=== PATIENT | female | born 1995 | race Two or more races ===

== ENCOUNTER 2016-10-27 01:34 | Emergency (ER) | payer MEDICAID ==
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
--- NOTE | 2016-10-27 13:50 | Diagnostic Imaging Report ---
CT scan of the brain without contrast History: Headache Total DLP equals 523 CTDI equals 31.7 Axial sections were obtained from the base of the skull to the vertex. There is a normal ventricular system size. No focal parenchymal lesions are seen. No evidence of any mass effect or shift of midline structures. No extra-axial masses or abnormal fluid collections. Mild mucosal thickening is noted throughout the paranasal sinuses. Impression: Negative examination
== END 2016-10-27 03:10 | disposition home or self-care (01) ==
LOC: ER 01:34
DX: S00.03XA Contusion of scalp, initial encounter (principal); J45.909 Unspecified asthma, uncomplicated; J44.9 Chronic obstructive pulmonary disease, unspecified; Z90.49 Acquired absence of other specified parts of digestive tract; Y04.0XXA Assault by unarmed brawl or fight, initial encounter; Y93.89 Activity, other specified; Y92.89 Other specified places as the place of occurrence of the external cause; Y99.8 Other external cause status
CPT/HCPCS: 70450-TC; Z7502; Z7610